=== PATIENT | male | born 1950 | race Caucasian/White ===

== ENCOUNTER → 2018-04-14 | Outpatient (CLI) | payer MEDICARE ==
[2018-04-14 10:33] LABS: HCT 48.9 % (39.0-53.0); HGB 15.8 gm/dL (13.0-17.5); MCH 29.9 pg (25.0-35.0); MCHC 32.4 g/dL (31.0-37.0); MCV 92.5 fL (80.0-100.0); Mean Platelet Volume 7.7; Platelet Count 226 k/uL (150-450); RBC 5.29 m/uL (4.30-5.90); RDW 12.8 % (11.5-15.5); WBC 6.7 k/uL (3.8-10.6)
[2018-04-14 10:44] LABS: Anion Gap 8 mmol/L; Blood Urea Nitrogen 17 mg/dL (9-20); Carbon Dioxide 24 mmol/L (22-30); Chloride 109 mmol/L (98-107); Potassium 4.6 mmol/L (3.5-5.1); Sodium 141 mmol/L (137-145)
== END | disposition home or self-care (01) ==
LOC: LABPAT 09:24
PROVIDERS: ATTEND Internal Medicine Interventional Cardiology
DX: Z01.812 Encounter for preprocedural laboratory examination (principal); E78.5 Hyperlipidemia, unspecified; I10 Essential (primary) hypertension
CPT/HCPCS: 36415; 80051; 82565; 84520; 85027

== ENCOUNTER 2018-04-28 11:06 | Day surgery (SDC) | payer MEDICARE, OTHER ==
[2018-04-23 10:49] VITALS: BMI 46.0
[~2018-04-28 11:06] MED LIST: ALPRAZolam 0.25 MG TAB PO PRN; ASPIRIN 325 MG TAB PO ONE; SODIUM CHLORIDE 0.9% 1,000 ML in EMPTY BAG 1 BAG IV ONE
[2018-04-28] MEDS ORDERED: GABAPENTIN 300 MG CAP PO STA ×2 (11:39→18:22)
[2018-04-28] MEDS ORDERED: VERAPAMIL 2.5 MG/ML 2 ML AMP ONE (16:31)
[2018-04-28] MEDS ORDERED: LIDOCAINE 1% INJ 10MG/ML (20 ML MDV) ONE (16:31)
[2018-04-28] MEDS ORDERED: HEPARIN SODIUM 1,000 UN/ML (10ML VL) ONE (16:31)
[2018-04-28] MEDS ORDERED: fentaNYL (PF) 50 MCG/ML 2 ML AMP ONE (16:53)
[2018-04-28] MEDS ORDERED: fentaNYL (PF) 50 MCG/ML 2 ML AMP IVP ONE (17:10)
[2018-04-28] MEDS ORDERED: MIDAZOLAM 2 MG/2 ML VIAL IVP ONE (17:10)
[2018-04-28] MEDS ORDERED: LIDOCAINE 1% INJ 10MG/ML (20 ML MDV) SQ ONE (17:17)
[2018-04-28] MEDS ORDERED: VERAPAMIL SYRINGE (5 MG/10 ML) INTRAARTER ONE ×2 (17:20→17:21)
[2018-04-28] MEDS ORDERED: HEPARIN SODIUM 1,000 UN/ML (10ML VL) IV ONE (17:23)
[2018-04-28] MEDS ORDERED: IOPAMIDOL-370 125ML BTL INJ ONE (17:30)
[2018-04-28] MEDS ORDERED: RX INFO: IV CONTRAST WAS GIVEN 1 EACH MISC MISCELLANE PRN (17:43)
[2018-04-28] MEDS ORDERED: SODIUM CHLORIDE 0.9% 1,000 ML IV SCH (17:45)
[2018-04-28 19:34] VITALS: RESP 18
[2018-04-28 19:41] VITALS: TEMP 97.4
--- NOTE | 2018-04-28 22:04 | LTR ---
April 28, 2018. Dr. Yang Amin RE: Payam Gerard Dear Dr. Amin: Mr. Payam Gee underwent a heart catheterization and that showed severe disease involving the ostial first diagonal branch of the left anterior descending artery. I did recommend maximized medical treatment given his anatomy. I want to thank you for allowing us with his care and please do not hesitate to call if you have any question or concerns. Sincerely, Tom Jessica M.D. DIPESH / WILLIAM: [phone] /
--- NOTE | 2018-04-28 22:16 | CC ---
CARDIAC CATHETERIZATION REPORT DATE OF SERVICE: 04/28/2018 PERFORMING PHYSICIAN: Tom Jessica MD, stitcher special machine. PROCEDURES PERFORMED: 1. Selective right and left coronary angiogram. 2. Left heart catheterization. INDICATION: This is a pleasant 67-year-old gentleman with known hypertension and dyslipidemia as well as obesity who was experiencing intermittent episodes of sweating associated with shortness of breath. The symptoms are exertional. He underwent a myocardial perfusion imaging stress test and that revealed anterior ischemia. Because of that, a heart catheterization was advised. APPROACH: Right radial artery. COMPLICATIONS: None. LEVEL OF SEDATION: Moderate, with sedation length of 17 minutes. PROCEDURE DESCRIPTION: After obtaining informed consent, the patient was brought to cardiac laboratory technician. The right radial artery was cannulated using micropuncture technique. The micropuncture wire passed easily. Then I placed a 6-Uzbek sheath in the right radial artery. After that I gave the patient 2 mg of verapamil IA and 10,000 units of heparin IV. I did perform selective right and left coronary angiogram using JR4 and JL3.5 catheters. Left heart catheterization was performed using the JL which flipped into the LV and then I did pull back across the aortic valve. The procedure was completed without any complication. SELECTIVE CORONARY ANGIOGRAM: 1. The right coronary artery is a large-caliber vessel and it is a dominant vessel. It has mild disease in the mid portion. Distally it bifurcates into PDA and PLV branches. Both are angiographically normal. 2. The left main is angiographically normal. It bifurcates into left circumflex and left anterior descending artery. 3. Left circumflex is a large-caliber vessel. It is a nondominant vessel. The proximal circumflex is normal and gives rise to a large OM branch which bifurcates into 2 subbranches that appeared to be angiographically normal. The circumflex continues after that as a small-caliber vessel in the AV groove. 4. The LAD. The proximal LAD has mild disease only. It gives rise to a large first diagonal branch which has an ostial lesion in the range of 99.9%, but the lesion is true ostial lesion. The mid LAD appeared to be angiographically normal and gives rise to a second diagonal branch which appeared to be a small-caliber vessel, and the LAD distally appeared to be angiographically normal. HEMODYNAMICS: The left ventricular end-diastolic pressure was 12 mmHg and no significant gradient was identified across the aortic valve. 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 POST-PROCEDURE MANAGEMENT: 1. Given the anatomy with an ostial lesion involving the first diagonal branch of the LAD, I did recommend maximized medical treatment and consider oral nitrate. 2. I will continue following up with the patient as well at [place]. MMODL / IJN: [id number] /
[2018-04-28 23:44] VITALS: BP 132/69; PULSE 77
== END 2018-04-28 23:36 | disposition home or self-care (01) ==
LOC: CATHCVL 11:06 → 3SCARD 17:11 → CATHCVL 23:36
PROVIDERS: ATTEND Internal Medicine Interventional Cardiology
DX: I25.10 Atherosclerotic heart disease of native coronary artery without angina pectoris (principal); R94.39 Abnormal result of other cardiovascular function study; I10 Essential (primary) hypertension; E66.01 Morbid (severe) obesity due to excess calories; E78.5 Hyperlipidemia, unspecified; Z79.82 Long term (current) use of aspirin; Z79.899 Other long term (current) drug therapy; Z68.42 Body mass index [BMI] 45.0-49.9, adult
CPT/HCPCS: 93458; 99152; C1769; C1894; J2250; J2001; J3010; J1644; Q9967

== ENCOUNTER → 2024-08-31 | Outpatient (CLI) | payer MEDICARE, OTHER ==
--- NOTE | 2024-09-01 07:40 | CA ---
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 67 - 155 / 56 - 104 cm??? LV Systolic Volume MOD BP 43.1 cm??? - 58 / 19 - 49 cm??? LV Ejection Fraction MOD BP 51.2 % >= 55 % LV Cardiac Index MOD BP 982.0 cm???/min???m??? LV Diastolic Volume MOD 4C 98.5 cm??? LV Systolic Volume MOD 4C 46.5 cm??? LV Ejection Fraction MOD 4C 52.8 % LV Cardiac Index MOD 4C 1130.1 cm???/min???m??? LV Diastolic Length 4C 7.4 cm LV Systolic Length 4C 7.0 cm LV Diastolic Volume MOD 2C 77.9 cm??? LV Systolic Volume MOD 2C 31.0 cm??? LV Ejection Fraction MOD 2C 60.2 % LV Cardiac Index MOD 2C 1019.1 cm???/min???m??? LV Diastolic Length 2C 7.3 cm LV Systolic Length 2C 5.4 cm LA Volume 59.3 cm??? 18 - 58 / 22 - 52 cm??? LA Volume Index 19.2 cm???/m??? 16 - 28 cm???/m??? M-MODE Aortic Root Diameter MM 3.2 cm AV Cusp Separation MM 3.0 cm DOPPLER MV Area PHT 5.8 cm??? Mitral E Point Velocity 92.0 cm/s Mitral A Point Velocity 77.0 cm/s Mitral E to A Ratio 1.2 MV Deceleration Time 130.4 ms TR Peak Velocity 265.6 cm/s TR Peak Gradient 28.2 mmHg Right Ventricular Systolic Press 33.2 mmHg FINDINGS Left Ventricle Left ventricular ejection fraction is estimated at 50-55 %. Left ventricular cavity size normal. Mildly increased left ventricular wall thickness. Right Ventricle Mild right ventricular dilatation. Right ventricular systolic pressure within normal limits. Right Atrium Right atrium not well visualized. No right atrial thrombus or mass seen. Left Atrium Mildly increased left atrial volume. No left atrial thrombus or mass present. Mitral Valve Structurally normal mitral valve. No evidence for mitral valve prolapse. No mitral stenosis. Mild mitral regurgitation. Aortic Valve No aortic valve stenosis or regurgitation.aortic valve not well visualized. Tricuspid Valve Structurally normal tricuspid valve. Mild tricuspid regurgitation. Pulmonic Valve Pulmonic valve not well visualized. Pericardium No pericardial effusion. Aorta Normal size aortic root and proximal ascending aorta. CONCLUSIONS Technically difficult study. Definity ECHO contrast used for improved visualization of the endocardial borders (inadequate visualization of two or more contiguous segments). Left ventricular systolic function borderline normal Very limited Doppler study with mild mitral and tricuspid regurgitation and no evidence of pulmonary hypertension Previewed by: Dr. Efra Fernandez MD (Electronically Signed) Final Date: 01 September 2024 07:39
--- NOTE | 2024-09-01 08:26 | CT ---
EXAMINATION TYPE: CT chest wo con CT DLP: 885 mGycm, Automated exposure control for dose reduction was used. 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 Lack of IV or o ral contrast limits evaluation of solid and hollow organ viscera. . Coronal and sagittal reformats re viewed. FINDINGS: LUNGS/ PLEURA: No pleural effusion, pneumothorax, or focal consolidation. Right anterior midline 5.6 mm pulmonary nodule (series 4, image 35). Right anterior midlung pleural-based 5.9 mm pulmonary nodu le (series 4, image 37). Multiple scattered calcified granulomas throughout the lungs. AIRWAY: Patent and unremarkable.. HEART: Cardiomegaly is demonstrated. No pericardial effusion. Mild coronary artery calcifications pre sent. MEDIASTINUM: No gross evidence of adenopathy. Mediastinal and bilateral hilar calcified granulomas. VASCULATURE: Ascending thoracic aortic aneurysm measuring 4.1 cm. MUSCULOSKELETAL: No acute osseous abnormalities. DISH of the thoracic spine. SOFT TISSUES/LYMPH NODES: Unremarkable. LOWER NECK: No significant findings. UPPER ABDOMEN: Nonobstructive right renal 4 mm calculus. Calcific granulomas within the spleen. IMPRESSION: 1. No acute thoracic process. 2. Couple of pulmonary nodules measuring less than 6 mm. According to Fleischner's criteria, in a low -risk patient no follow-up is recommended. In a high-risk patient consider optional CT chest in 12 mo nths. 3. Sequelae of prior granulomatous disease. 4. Ascending thoracic aortic aneurysm measuring 4.1 cm. [facility], , 09/01/2024 8:24 AM
== END | disposition home or self-care (01) ==
LOC: RADCTMAIN 14:28
PROVIDERS: ATTEND Internal Medicine
DX: I87.2 Venous insufficiency (chronic) (peripheral) (principal); R91.1 Solitary pulmonary nodule; R91.8 Other nonspecific abnormal finding of lung field; I71.21 Aneurysm of the ascending aorta, without rupture; D71 Functional disorders of polymorphonuclear neutrophils
CPT/HCPCS: 71250; C8929; Q9957; 93306

== ENCOUNTER → 2024-09-08 | Outpatient (CLI) | payer MEDICARE, OTHER | LOC: CPPFTMAIN 12:42 | PROVIDERS: ATTEND Internal Medicine | DX: J98.4 Other disorders of lung (principal); Z87.891 Personal history of nicotine dependence | CPT/HCPCS: 94060; 94726; 94729 ==

== ENCOUNTER → 2024-11-12 | Outpatient (CLI) | payer MEDICARE, OTHER ==
--- NOTE | 2024-11-13 20:07 | MR ---
INDICATION: Patient age:Male; 74 years old; Reason for study: R26.89 ABN OF GAIT MOBILITY M48.06 M43.16; PHH. COMPARISONS: No priors. TECHNIQUE: Multi planar, multi sequence imaging was performed utilizing: T1-weighted, T2-weighted, a nd turbo inversion recovery imaging of the lumbar spine. The patient was not given contrast. FINDINGS: The lumbar vertebral bodies do have preserved heights and alignment. Multilevel anterior o steophytosis. Diffuse heterogenous bone marrow signal. Multilevel spondylosis most levels without german ma to suggest acute process. Multilevel disc desiccation is present. Prominent disc height loss at L 5-S1. Type II Modic changes involving the endplates around the L5-S1 disc. The conus medullaris and t he distal spinal cord do appear unremarkable with regards to their signal intensity and morphology. S ubcutaneous edema in the back. L1-L2: No significant disc pathology is identified. The spinal canal and neural foramen are patent. L2-L3: No significant disc pathology is identified. Bilateral facet adenopathy. The spinal canal and neural foramen are patent. L3-L4: Broad-based disc bulge with bilateral facet arthropathy and ligamentum flavum buckling contri bute to severe spinal canal stenosis. Moderate bilateral neuroforaminal stenosis.. L4-L5: Broad-based disc bulge with bilateral facet arthropathy and ligamentum flavum buckling contrib vicky to severe spinal canal stenosis. Mild to moderate bilateral neuroforaminal stenosis. L5-S1: Large left paracentral/subarticular zone osteophyte resulting in mild spinal canal stenosis a long the left aspect. Effacement of the exiting left S1 nerve root. Bilateral facet arthropathy. Mild to moderate bilateral neural foraminal stenosis. Other significant findings: None. 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 Severe spinal canal stenosis at L3-L4 and L4-L5 with effacement of the exiting left S1 nerve root du e to large posterior osteophyte. [facility], , 11/13/2024 8:04 PM
== END | disposition home or self-care (01) ==
LOC: RADMRIMAIN 18:55
PROVIDERS: ATTEND Student in an Organized Health Care Education/Training Program
DX: M48.062 Spinal stenosis, lumbar region with neurogenic claudication (principal); M51.369 Other intervertebral disc degeneration, lumbar region without mention of lumbar back pain or lower extremity pain; R26.89 Other abnormalities of gait and mobility; M47.816 Spondylosis without myelopathy or radiculopathy, lumbar region; M25.78 Osteophyte, vertebrae
CPT/HCPCS: 72148